=== PATIENT | female | born 1995 | race Two or more races ===

== ENCOUNTER 2016-02-14 12:30 | Emergency (ER) | payer MEDICAID ==
[~2016-02-14] VITALS: Ht 160 cm; Wt 54.4 kg
[~2016-02-14 12:30] MED LIST: CIPROFLOXACIN500 M2 ORAL
--- NOTE | 2016-02-14 13:11 | Emergency Room Report ---
History of Present Illness General Chief Complaint: Female Urogenital Problems Source: Patient Present Illness [facility] The pt is a 20 yo F presenting for 2 days of vaginal itching, vaginal burning, and thin white vaginal discharge. The pt admits to an 8/10 vaginal burning. Pt admits to mild dysuria. Pt denies hematuria, flank pain, F, chills, N, V, abd pain Allergies: Coded Allergies: No Known Allergies (Unverified , 06/29/15) Patient History Past Medical History: see triage record Pertinent Family History: none Last Menstrual Period: 12/12/15 Now: No - irregular periods Reviewed Nursing Documentation: PMH: Agreed, PSxH: Agreed Nursing Documentation-PMH Past Medical History: No Stated History Review of Systems All Other Systems: negative except mentioned in HPI Physical Exam Vital Signs Date Time Temp Pulse Resp B/P Pulse Ox O2 Delivery O2 Flow Rate FiO2 02/14/16 12:39 98.2 101 16 115/78 100 Room Air Sp02 EP Interpretation: reviewed, normal General Appearance: no apparent distress, alert, GCS 15, non-toxic Head: normocephalic, atraumatic Eyes: bilateral eye PERRL, bilateral eye normal inspection ENT: hearing grossly normal, normal pharynx, no angioedema, normal voice Neck: full range of motion, supple/symm/no masses Respiratory: chest non-tender, lungs clear, normal breath sounds, speaking full sentences Cardiovascular #1: regular rate, rhythm, no edema Cardiovascular #2: 2+ carotid (R), 2+ carotid (L), 2+ radial (R), 2+ radial (L) , 2+ dorsalis pedis (R), 2+ dorsalis pedis (L) Gastrointestinal: normal bowel sounds, non tender, soft, non-distended, no guarding, no rebound Rectal: deferred Genitourinary: normal inspection, no CVA tenderness Musculoskeletal: back normal, gait/station normal, normal range of motion, non- tender Neurologic: alert, oriented x3, responsive, motor strength/tone normal, sensory intact, speech normal Psychiatric: judgement/insight normal, memory normal, mood/affect normal, no suicidal/homicidal ideation Reflexes: 3+ bicep (R), 3+ bicep (L), 3+ tricep (R), 3+ tricep (L), 3+ knee (R) , 3+ knee (L) Skin: normal color, no rash, warm/dry, well hydrated Lymphatic: no adenopathy Medical Decision Making PA Attestation Dr. Valadez is my supervising physician. Patient management was discussed with my supervising physician Diagnostic Impression: Primary Impression: UTI (urinary tract infection) Additional Impression: Vaginal yeast infection ER Course The pt is a 20 yo F presenting for 2 days of vaginal itching, vaginal burning, and thin white vaginal discharge. The pt admits to an 8/10 vaginal burning. Pt admits to mild dysuria. Pt denies hematuria, flank pain, F, chills, N, V, abd pain Differential diagnosis considered but not limited to: UTI, vaginitis, pyelonephritis, pyelonephrosis, PID, ectopic PE: Vitals WNL. NAD. Abdomen: Normal appearance. Non distended. No ecchymosis. Normal BS. Non TTP. No McBurney point tenderness. No guarding. No CVA tenderness Labs: Urine is negative. Urinalysis is consistent with UTI. The patient be discharged home with a prescription for Macrobid and will take one Diflucan at the end of the antibiotic course. ER precautions are given Laboratory Tests Test 02/14/16 13:20 Urine Color Yellow Urine Appearance Slightly cloudy Urine pH 5 (4.5-8.0) Urine Specific [place] 1.020 (1.005-1.035) Urine Protein 2+ (NEGATIVE) H Urine Glucose (UA) Negative (NEGATIVE) Urine Ketones Negative (NEGATIVE) Urine Occult Blood 3+ (NEGATIVE) H Urine Nitrite Negative (NEGATIVE) Urine Bilirubin Negative (NEGATIVE) Urine Urobilinogen 1 MG/DL (0.0-1.0) H Urine Leukocyte Esterase 3+ (NEGATIVE) H Urine RBC 2-4 /HPF (0 - 2) H Urine WBC 30-40 /HPF (0 - 2) H Urine Squamous Epithelial Cells Few /LPF (NONE/OCC) Urine Bacteria Few /HPF (NONE) Urine HCG, Qualitative Negative Lab Results Impression Urine negative. Urinalysis consistent with UTI Last Vital Signs Date Time Temp Pulse Resp B/P Pulse Ox O2 Delivery O2 Flow Rate FiO2 02/14/16 12:39 98.2 101 16 115/78 100 Room Air Status: improved Disposition: HOME, SELF-CARE Condition: Improved Scripts Fluconazole (DIFLUCAN) 150 Mg Tablet 150 MG PO DAILY, #1 TAB Prov: DEMETRICE SAGE 02/14/16 Nitrofurantoin Monohyd/M-Cryst* (MACROBID 100 MG*) 100 Mg Capsule 100 MG ORAL EVERY 12 HOURS, #14 CAP Prov: DEMETRICE SAGE 02/14/16 DEMETRICE SAGE Feb 14, 2016 13:11
[2016-02-14 13:20] VITALS: BP 115/78
[2016-02-14 13:30] LABS: APPEARANCE,URINE SLIGHTLY CLOUDY; KETONES,URINE NEGATIVE (NEGATIVE); LEUKOCYTE ESTERASE ,URINE 3+ (NEGATIVE); NITRITE,URINE NEGATIVE (NEGATIVE); PH,URINE 5 (4.5-8.0); PROTEIN,URINE 2+ (NEGATIVE); UROBILINOGEN,URINE 1 MG/DL (0.0-1.0)
[2016-02-14 13:46] LABS: BACTERIA,URINE FEW /HPF; SQUAMOUS EPITHELIAL CELL,UR FEW /LPF (NONE/OCC); WBC,URINE 30-40 /HPF (0 - 2)
[2016-02-14] MEDS ORDERED: NITROFURANTOIN100 M2 ORAL (14:09)
[2016-02-14] MEDS ORDERED: DIFLUCAN150 MG PO (14:09)
[2016-02-14 14:43] VITALS: BP 115/78
[2016-02-20] MEDS ORDERED: LEVOFLOXACIN500 MG ORAL (14:35)
== END 2016-02-14 14:43 | disposition home or self-care (01) ==
LOC: EMR 13:10
DX: N39.0 Urinary tract infection, site not specified (principal); B37.3 Candidiasis of vulva and vagina
CPT/HCPCS: 81003; 81025; 87086; 87181; 99282

== ENCOUNTER 2018-10-21 13:34 | Emergency (ER) | payer MEDICAID ==
[~2018-10-21] VITALS: Ht 162.6 cm; Wt 56.7 kg
[~2018-10-21 13:34] MED LIST changes: +DIFLUCAN150 MG PO; +LEVOFLOXACIN500 MG ORAL; +NITROFURANTOIN100 M2 ORAL
[2018-10-21] MEDS ORDERED: NKM (13:43)
--- NOTE | 2018-10-21 14:12 | NUR ---
ED Nurse Note: Patient nursed in fast track complaining of right eye problem. Symptom onset Sunday. Swollen on Sun and Sunday. Using cold complress and cleaning and using antibiotic ointment Not sure of name. States eye is also itchy. Not wearing contacts since symptom onset. States the symptoms began as a scratch and then progressed. Not complaining of loss of vision/blurred vision.
[2018-10-21 14:18] VITALS: BP 106/76
--- NOTE | 2018-10-21 14:22 | Emergency Room Report ---
History of Present Illness General Chief Complaint: Eye Problems Source: Patient Present Illness HPI 23-year-old female presents to the emergency department complaining of progressively itchy right lower eyelid x3 days. Patient reports she is now developing a rash. Patient reports increased lacrimation she denies symptoms on the left side she denies pain or symptoms inside the eyes she reports that is localized to the eyelid. Patient denies sticky or purulent discharge in the mornings. Patient denies erythema of the eyes, visual changes, burning of the eyes or burning sensation of the rash. Pt. denies fevers, chills or swollen tender lymph nodes. Denies lesions/rashes elsewhere on the body. Denies new medications or body washes or creams. Denies swelling of the lips, tongue , throat or airway. Denies wheezing, or shortness of breath. Denies recent travel , recent illness or ill contacts. denies blisters, oral lesions, or sloughing of the skin. Allergies: Coded Allergies: No Known Allergies (Unverified , 06/29/15) Patient History Past Medical History: see triage record Past Surgical History: none Last Menstrual Period: 06/2018 Now: No Immunizations: UTD Reviewed Nursing Documentation: PMH: Agreed; PSxH: Agreed Nursing Documentation-PMH Past Medical History: No Stated History Review of Systems All Other Systems: negative except mentioned in HPI Physical Exam Vital Signs Date Time Temp Pulse Resp B/P (MAP) Pulse Ox O2 Delivery O2 Flow Rate FiO2 10/21/18 13:39 98.4 78 16 107/82 (90) 99 Room Air Sp02 EP Interpretation: reviewed, normal General Appearance: no apparent distress, alert, GCS 15, non-toxic Head: normocephalic, atraumatic Eyes: right eye other - swollen lower right eye lide with urticarial type rash underneath, no erythema or warmth. No blisters or vesicles.; bilateral eye normal inspection, bilateral eye PERRL ENT: hearing grossly normal, no angioedema, normal voice Neck: full range of motion Respiratory: chest non-tender, lungs clear, normal breath sounds, no wheezing, speaking full sentences Cardiovascular #1: regular rate, rhythm Rectal: deferred, black stool Musculoskeletal: gait/station normal, normal range of motion, non-tender Neurologic: alert, oriented x3, responsive, motor strength/tone normal, sensory intact, speech normal, grossly normal Psychiatric: judgement/insight normal Skin: rash - lower right eye lide with urticarial type rash underneath, no erythema or warmth. No blisters or vesicles. Lymphatic: no adenopathy Medical Decision Making PA Attestation Dr. Valadez is my supervising Physician whom patient management has been discussed with. Diagnostic Impression: Primary Impression: Allergic dermatitis of right eye, unspecified eyelid Qualified Codes: H01.112 - Allergic dermatitis of right lower eyelid ER Course 23-year-old female presents to the emergency department complaining of progressively itchy right lower eyelid x3 days. Patient reports she is now developing a rash. Patient reports increased lacrimation she denies symptoms on the left side she denies pain or symptoms inside the eyes she reports that is localized to the eyelid. Patient denies sticky or purulent discharge in the mornings. Patient denies erythema of the eyes, visual changes, burning of the eyes or burning sensation of the rash. Pt. denies fevers, chills or swollen tender lymph nodes. Denies lesions/rashes elsewhere on the body. Denies new medications or body washes or creams. Denies swelling of the lips, tongue , throat or airway. Denies wheezing, or shortness of breath. Denies recent travel , recent illness or ill contacts. denies blisters, oral lesions, or sloughing of the skin. - She denies Contact lens use. Ddx considered but are not limited to: corneal abrasion, acute glaucoma, globe rupture, FB, Corneal Ulcer, conjunctivitis. Iridis, eczema, herpes zoster just to name a few Vital signs: are WNL, pt. is afebrile H&PE are most consistent with: allergic reaction ORDERS: -none dx is clinical ED INTERVENTIONS: none at this time. DISCHARGE: At this time pt. is stable for d/c to home. Will provide printed patient care instructions, and any necessary prescriptions. Care plan and follow up instructions have been discussed with the patient prior to discharge. . Last Vital Signs Date Time Temp Pulse Resp B/P (MAP) Pulse Ox O2 Delivery O2 Flow Rate FiO2 10/21/18 13:39 98.4 78 16 107/82 (90) 99 Room Air Disposition: HOME, SELF-CARE Condition: Stable Scripts Hydrocortisone Acetate 1% Onit (HYDROCORTISONE 1% OINT) Y Oint 1 APPLIC TP BID for 5 Days, #28 GM avoid contact with/in eyes. use sparingly, may cause thinning of the skin. Prov: Gwendolyn Richardson 10/21/18 Azelastine Hcl (AZELASTINE HCL) 6 Ml Drops 2 DRP OP Q12HR, #6 ML Prov: Gwendolyn Richardson 10/21/18 Ketotifen Fumarate (ALAWAY) 10 Ml Drops 2 ML OP BID, #10 ML Prov: Gwendolyn Richardson 10/21/18 Departure Forms: Return to Work Return to Work Date: Oct 22, 2018 Work Restrictions: None Return to Full Activity: Oct 22, 2018 Patient Instructions: Allergic Conjunctivitis, [id number], Contact Dermatitis , [id number] Additional Instructions: Take medications as directed. Follow up with a PCP or Lead Relay Tester in 3 days, even if your symptoms have resolved. --Please review list of primary care clinics, if you do not already have a primary care provider Return sooner to ED if new symptoms occur, or current symptoms become worse. - Please note that this Emergency Department Report was dictated using [employer] pinner technology software, occasionally this can lead to erroneous entry secondary to interpretation by the dictation equipment. Gwendolyn Richardson Oct 21, 2018 14:22
[2018-10-21] MEDS ORDERED: ALAWAY10 ML OP (14:27)
[2018-10-21] MEDS ORDERED: AZELASTINE HCL6 ML OP (14:27)
[2018-10-21] MEDS ORDERED: HYDROCORTISONE28 G2 TP (14:27)
--- NOTE | 2018-10-21 14:33 | NUR ---
ER DISCHARGE NOTE: Patient is cleared to be discharged per ERMD, pt is aox4, on room air, with stable vital signs. pt was given dc and prescription instructions, pt was able to verbalize understanding, pt is able to ambulate with steady gait. pt took all belongings. Will Follow up with PCP or opthalmologist as required.
== END 2018-10-21 14:33 | disposition home or self-care (01) ==
LOC: EMR 14:10
DX: H01.112 Allergic dermatitis of right lower eyelid (principal)
CPT/HCPCS: 99282

== ENCOUNTER 2019-02-17 09:16 | Emergency (ER) | payer MEDICAID ==
[~2019-02-17] VITALS: Ht 165.1 cm; Wt 56.7 kg
[~2019-02-17 09:16] MED LIST changes: +ALAWAY10 ML OP; +AZELASTINE HCL6 ML OP; +HYDROCORTISONE28 G2 TP; +NKM
[2019-02-17 09:48] VITALS: BP 109/67
--- NOTE | 2019-02-17 09:48 | NUR ---
ED Nurse Note:pt. came with possible UTI, urine sent to labs
[2019-02-17 10:20] LABS: APPEARANCE,URINE CLEAR; BILIRUBIN, URINE NEGATIVE (NEGATIVE); COLOR,URINE PALE YELLOW; GLUCOSE, URINE (UA) NEGATIVE (NEGATIVE); KETONES,URINE NEGATIVE (NEGATIVE); LEUKOCYTE ESTERASE ,URINE 1+ (NEGATIVE); NITRITE,URINE NEGATIVE (NEGATIVE); PH,URINE 6 (4.5-8.0); PROTEIN,URINE NEGATIVE (NEGATIVE); UROBILINOGEN,URINE NORMAL MG/DL (0.0-1.0)
[2019-02-17] MEDS ORDERED: METRONIDAZOLE500 MG ORAL (11:21)
--- NOTE | 2019-02-17 11:22 | Emergency Room Report ---
History of Present Illness General Chief Complaint: Female Urogenital Problems Source: Patient Present Illness HPI 23 female presents to emergency room with 1 week of vaginal discharge and foul odorous scent. Patient has had new partners this year she had a history of chlamydia in the past. She denies any nausea vomiting abdominal pain diarrhea constipation. Patient is a G0, P0. Last menstrual period 1 week ago. Allergies: Coded Allergies: No Known Allergies (Unverified , 06/29/15) Patient History Last Menstrual Period: 01/21/19 Nursing Documentation-[facility] Past Medical History: No Stated History Review of Systems Constitutional: Denies: chills, fever Respiratory: Denies: cough, shortness of breath Cardiovascular: Denies: chest pain, palpitations Gastrointestinal: Denies: diarrhea, vomiting Genitourinary: Reports: discharge, dysuria; Denies: hematuria, pain Musculoskeletal: Denies: joint swelling Skin: Denies: rash, lesions Neurological: Denies: headache, dizziness Physical Exam Vital Signs Date Time Temp Pulse Resp B/P (MAP) Pulse Ox O2 Delivery O2 Flow Rate FiO2 02/17/19 09:24 97.7 76 19 109/67 (81) 100 Room Air Sp02 EP Interpretation: reviewed General Appearance: well appearing, no apparent distress, non-toxic Head: normocephalic, atraumatic Eyes: bilateral eye normal inspection ENT: hearing grossly normal, EOM grossly intact, moist mucus membranes Neck: supple Respiratory: lungs clear, normal breath sounds, no respiratory distress, speaking full sentences Cardiovascular #1: regular rate, rhythm, normal capillary refill Cardiovascular #2: 2+ radial (R), 2+ radial (L) Gastrointestinal: soft, no mass, non-distended Rectal: deferred Genitourinary: adnexa normal, cervix normal, other - White and yellow discharge , Musculoskeletal: moves extm spontaneously, no lower extremity edema Neurologic: grossly normal Psychiatric: mood/affect normal Skin: warm/dry, normal turgor Medical Decision Making Diagnostic Impression: Primary Impression: Dysuria Additional Impression: Vaginal discharge ER Course 23 female presents to emergency room with 1 week of vaginal discharge and foul odorous scent. Patient has had new partners this year she had a history of chlamydia in the past. She denies any nausea vomiting abdominal pain diarrhea constipation. Patient is a G0, P0. Last menstrual period 1 week ago. Vaginal exam negative, no bleeding, close cervical loss, no discharge. We will treat patient for sexually transmitted infections given elevated WBC and urinalysis and patient's new sexual partners. We will also treat for bacterial vaginosis due to foul order. Patient recommended to follow-up with primary care doctor in 2 to 3 days for reevaluation. Patient recommended to be tested for seizure she has been infections at clinic. Laboratory Tests Test 02/17/19 10:10 Urine Color Pale yellow Urine Appearance Clear Urine pH 6 (4.5-8.0) Urine Specific [place] 1.015 (1.005-1.035) Urine Protein Negative (NEGATIVE) Urine Glucose (UA) Negative (NEGATIVE) Urine Ketones Negative (NEGATIVE) Urine Blood Negative (NEGATIVE) Urine Nitrite Negative (NEGATIVE) Urine Bilirubin Negative (NEGATIVE) Urine Urobilinogen Normal MG/DL (0.0-1.0) Urine Leukocyte Esterase 1+ (NEGATIVE) H Urine RBC 0 /HPF (0 - 2) Urine WBC 2-4 /HPF (0 - 2) Urine Squamous Epithelial Cells Few /LPF (NONE/OCC) Urine Bacteria Few /HPF (NONE) Urine Mucus Few /LPF (NONE/OCC) H Urine HCG, Qualitative Negative (NEGATIVE) Lab Results Impression Urinalysis positive for leukocyte esterase, mucus, negative for nitrites, blood , RBCs Last Vital Signs Date Time Temp Pulse Resp B/P (MAP) Pulse Ox O2 Delivery O2 Flow Rate FiO2 02/17/19 09:48 97.7 19 109/67 100 Room Air 02/17/19 09:24 76 Disposition: HOME, SELF-CARE Condition: Stable Scripts Metronidazole* (FLAGYL*) 500 Mg Tablet 500 MG ORAL BID for 14 Days, #28 TAB Prov: Moe Frazier M.D. 02/17/19 Referrals: [facility] Patient Instructions: Vaginitis Additional Instructions: Please follow-up with COMPUTER FORENSICS EXAMINER or women's health clinic in 2 to 3 days for reevaluation. Moe Frazier M.D. Feb 17, 2019 11:22
[2019-02-17] MEDS ORDERED: Lidocaine 1% MPF 10mg/ml 5ml ONE (11:26)
[2019-02-17] MEDS ORDERED: Azithromycin 250mg tab ONE (11:26)
[2019-02-17] MEDS ORDERED: Azithromycin 250mg tab ORAL ONE (11:30)
[2019-02-17] MEDS ORDERED: Lidocaine 1% MPF 10mg/ml 5ml INJ ONE (11:30)
[2019-02-17 11:35] VITALS: BP 109/67
--- NOTE | 2019-02-17 11:35 | NUR ---
ER DISCHARGE NOTE: Patient is cleared to be discharged per ERMD, pt is aox4, on room air, with stable vital signs. pt was given dc and prescription instructions, pt was able to verbalize understanding, pt is able to ambulate with steady gait. pt took all belongings.
== END 2019-02-17 11:35 | disposition home or self-care (01) ==
LOC: EMR 10:00
DX: N89.8 Other specified noninflammatory disorders of vagina (principal); R30.0 Dysuria
CPT/HCPCS: 81001; 81025; 96372; 96374; J0696; Q0144; Z7502; 99284

== ENCOUNTER 2019-08-13 18:28 | Emergency (ER) | payer SELFPAY ==
[~2019-08-13] VITALS: Ht 160 cm; Wt 56.2 kg
[~2019-08-13 18:28] MED LIST changes: +METRONIDAZOLE500 MG ORAL
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
[2019-08-13 19:05] VITALS: BP 101/68
--- NOTE | 2019-08-13 19:34 | Diagnostic Imaging Report ---
EXAM: CT Head Without Intravenous Contrast CLINICAL HISTORY: TRAUMA TECHNIQUE: Axial computed tomography images of the head/brain without intravenous contrast. CTDI is 5 mGy and DLP is 113 mGy-cm. One or more of the following dose reduction techniques were used: automated exposure control, adjustment of the mA and/or kV according to patient size, use of iterative reconstruction technique. COMPARISON: No relevant prior studies available. FINDINGS: Brain: Unremarkable. No hemorrhage. No significant white matter disease. No edema. Ventricles: Unremarkable. No ventriculomegaly. Bones/joints: Unremarkable. No acute fracture. Soft tissues: Unremarkable. Sinuses: Unremarkable as visualized. No acute sinusitis. Mastoid air cells: Unremarkable as visualized. No mastoid effusion. IMPRESSION: 1. No acute intracranial abnormality. 2. Unremarkable study.
--- NOTE | 2019-08-13 19:39 | Diagnostic Imaging Report ---
EXAM: CT Cervical Spine Without Intravenous Contrast CLINICAL HISTORY: TRAUMA TECHNIQUE: Axial computed tomography images of the cervical spine without intravenous contrast. CTDI is 5 mGy and DLP is 113 mGy-cm. One or more of the following dose reduction techniques were used: automated exposure control, adjustment of the mA and/or kV according to patient size, use of iterative reconstruction technique. Coronal and sagittal reformatted images were created and reviewed. Axial reformatted images were created and reviewed. COMPARISON: No relevant prior studies available. FINDINGS: Vertebrae: Unremarkable. No acute fracture. Discs/spinal canal/neural foramina: No acute findings. No spinal canal stenosis. Soft tissues: Unremarkable. IMPRESSION: 1. No acute traumatic injury. 2. Unremarkable study.
--- NOTE | 2019-08-13 19:53 | Diagnostic Imaging Report ---
EXAM: CT Thoracic Spine Without Intravenous Contrast CLINICAL HISTORY: TRAUMA TECHNIQUE: Axial computed tomography images of the thoracic spine without intravenous contrast. CTDI is 4.6 mGy and DLP is 259 mGy-cm. One or more of the following dose reduction techniques were used: automated exposure control, adjustment of the mA and/or kV according to patient size, use of iterative reconstruction technique. Coronal and sagittal reformatted images were created and reviewed. COMPARISON: No relevant prior studies available. FINDINGS: Vertebrae: Unremarkable. No acute fracture. Discs/spinal canal/neural foramina: No acute findings. No spinal canal stenosis. Soft tissues: Unremarkable. IMPRESSION: 1. No acute traumatic injury. 2. Unremarkable study.
--- NOTE | 2019-08-13 20:02 | Diagnostic Imaging Report ---
EXAM: CT Lumbar Spine Without Intravenous Contrast CLINICAL HISTORY: TRAUMA TECHNIQUE: Axial computed tomography images of the lumbar spine without intravenous contrast. CTDI is 5 mGy and DLP is 259 mGy-cm. One or more of the following dose reduction techniques were used: automated exposure control, adjustment of the mA and/or kV according to patient size, use of iterative reconstruction technique. Coronal and sagittal reformatted images were created and reviewed. Axial reformatted images were created and reviewed. COMPARISON: No relevant prior studies available. FINDINGS: Vertebrae: Unremarkable. No acute fracture. Discs/spinal canal/neural foramina: No acute findings. No spinal canal stenosis. Soft tissues: Unremarkable. IMPRESSION: Unremarkable lumbar spine CT.
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
[2019-08-13] MEDS ORDERED: ZOFRAN4 M1 ORAL (20:10)
[2019-08-13] MEDS ORDERED: LIDODERM700 M1 TOPIC (20:10)
[2019-08-13] MEDS ORDERED: IBUPROFEN600 M1 ORAL (20:10)
[2019-08-13] MEDS ORDERED: ROBAXIN-500MG ORAL (20:10)
[2019-08-13 20:20] VITALS: BP 104/75
--- NOTE | 2019-08-13 20:20 | NUR ---
ER DISCHARGE NOTE: Patient is cleared to be discharged per ERMD, pt is aox4, on room air, with stable vital signs. pt was given dc and prescription instructions, pt was able to verbalize understanding, pt id band removed. pt is able to ambulate with steady gait. pt took all belongings.
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
== END 2019-08-13 20:20 | disposition home or self-care (01) ==
LOC: EMR 18:45
DX: S16.1XXA Strain of muscle, fascia and tendon at neck level, initial encounter (principal); S39.012A Strain of muscle, fascia and tendon of lower back, initial encounter; R51 Headache; V49.9XXA Car occupant (driver) (passenger) injured in unspecified traffic accident, initial encounter; Y92.410 Unspecified street and highway as the place of occurrence of the external cause
CPT/HCPCS: 70450; 72125; 72128; 72131; 99284